=== PATIENT | male | born 1965 | race Caucasian/White ===

== ENCOUNTER 2016-10-08 03:07 | Emergency (ER) | payer OTHER ==
[~2016-10-08] VITALS: Ht 180.3 cm; Wt 113.8 kg
[~2016-10-08 03:07] MED LIST: AMOX500C3 PO; CETI10TA84 PO; MULT-506 PO; OXYC-57 PO; PRT40 PO
[2016-10-08 03:14] VITALS: TEMP 36.5; Ht 180.3 cm; Wt 113.8 kg
[2016-10-08] MEDS ORDERED: NITROGLYCERIN 0.4 MG SL PER TAB CHARGE SL STA (03:26)
[2016-10-08 03:36] LABS: BASO % 0.4 %; BASO ABS # 0.02 K/uL (0-0.2); COMPLETE YES; EOS % 4.4 %; HEMATOCRIT 44.1 % (42-52); IG% 0.4 %; LYMPH % 46.8 %; LYMPH ABS # 2.13 K/uL (1.2-3.4); MEAN CELL VOLUME 88.2 fL (80-100); MEAN CORPUSCULAR HGB CONC 35.1 g/dl (32-36); MEAN PLATELET VOLUME 9.4 fL (7.4-10.4); MONO % 8.8 %; NEUT % 39.2 %; PLATELET COUNT 208 K/uL (130-400); WHITE BLOOD COUNT 4.55 K/uL (4.8-10.8)
[2016-10-08] MEDS: NITROGLYCERIN 0.4 MG SL PER TAB CHARGE SL PRN ×2 (03:37→03:45)
--- NOTE | 2016-10-08 03:50 | EMERGENCY ROOM VISIT NOTE ---
History Report prepared by Hank: Manish Hercules Under the Supervision of: Dr. Jose E Miranda M.D. First contact with patient: 03:20 Chief Complaint: CARDIAC ASSESSMENT Stated Complaint: CHEST PRESSURE History of Present Illness The patient is a 50 year old male who presents to the Emergency Room with complaints of constant left-sided chest discomfort since yesterday. The patient states the the discomfort feels like heart burn and is rated 2/10 in severity. The discomfort does not radiate and is not exertional. His blood pressure is elevated compared to baseline. He is not on medication for blood pressure. The patient denies shortness of breath. The patient had two tablets of full strength aspirin tonight. The patient denies any recent falls or injury. He denies any history of cardiac disease or blood clots. He denies family history of heart attack. The patient just got back from a trip to [place]. 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 Source of History: patient Onset: yesterday Position: chest (left) Symptom Intensity: 2/10 Timing: constant Associated Symptoms: No SOB Review of Systems See HPI for pertinent positives & negatives. A total of 10 systems reviewed and were otherwise negative. Past Medical & Surgical Medical Problems: (1) Febrile illness (2) GERD (gastroesophageal reflux disease) Family History Patient reports no known family medical history. Social History Smoking Status: Never Smoker Alcohol Use: occasionally Drug Use: none Marital Status: Housing Status: lives with family Occupation Status: employed Current/Historical Medications Scheduled Cefadroxil (Cefadroxil), 1 GM PO DAILY Cetirizine (Zyrtec), 10 MG PO UD Multivitamin (Multivitamin), 1 TAB PO DAILY Omeprazole (Prilosec), 20 MG PO DAILY Allergies Coded Allergies: No Known Allergies (Unverified , 10/08/16) Physical Exam Vital Signs Date Time Temp Pulse Resp B/P Pulse Ox O2 Delivery O2 Flow Rate FiO2 10/08/16 06:00 67 16 146/105 97 Room Air 10/08/16 05:57 146/108 10/08/16 05:30 66 22 134/90 96 10/08/16 05:00 66 17 113/78 96 10/08/16 04:31 136/92 10/08/16 04:00 73 23 132/93 96 10/08/16 03:56 74 3/12/17 03:45 143/101 10/08/16 03:17 97 Room Air 10/08/16 03:14 36.5 76 18 195/103 98 Room Air Physical Exam GENERAL: Patient is anxious appearing in mild distress. HEENT: No acute trauma, normocephalic atraumatic, mucous membranes moist, no nasal congestion, no scleral icterus. NECK: No stridor, no adenopathy, no meningismus, trachea is midline. LUNGS: No dyspnea. Clear to auscultation and equal bilaterally. No wheeze, no rhonchi. HEART: Regular rate and rhythm. No murmurs, rubs, gallops appreciated. ABDOMEN: Soft, nontender, bowel sounds positive, no masses appreciated, no peritonitis. BACK: No midline tenderness, no CVA tenderness EXTREMITIES: Normal motion all extremities, no cyanosis, no edema. NEUROLOGIC: Alert and oriented, no acute motor or sensory deficits, no focal weakness, cranial nerves grossly intact. SKIN: No rash, no jaundice, no diaphoresis. Sunburn over anterior chest. Medical Decision & Procedures ER Provider Diagnostic Interpretation: X ray results and stated below per my interpretation. Other radiology results and stated below per my review and radiologist interpretation: Chest: 1 view: No infiltrate, no effusion, normal cardiac border. Questionable mild increased size of mediastinum. CTA CHEST: Compared to 07/31/14. No evidence of PE. No aortic aneurysm or dissection. Atelectatic changes. Mild peribronchial thickening. Moderate hiatal hernia. Query mild esophageal wall thickening. Mild splenomegaly. Radiologist: Moriah Tapia MD. Laboratory Results 10/08/16 03:25 Red Blood Count 5.00, Mean Corpuscular Volume 88.2, Mean Corpuscular Hemoglobin 31.0, Mean Corpuscular Hemoglobin Concent 35.1, Mean Platelet Volume 9.4, Neutrophils (%) (Auto) 39.2, Lymphocytes (%) (Auto) 46.8, Monocytes (%) (Auto) 8.8, Eosinophils (%) (Auto) 4.4, Basophils (%) (Auto) 0.4, Neutrophils # (Auto) 1.78, Lymphocytes # (Auto) 2.13, Monocytes # (Auto) 0.40, Eosinophils # (Auto) 0.20, Basophils # (Auto) 0.02 10/08/16 03:25 Test 10/08/16 03:25 10/08/16 04:02 White Blood Count 4.55 K/uL (4.8-10.8) Red Blood Count 5.00 M/uL (4.7-6.1) Hemoglobin 15.5 g/dL (14.0-18.0) Hematocrit 44.1 % (42-52) Mean Corpuscular Volume 88.2 fL (80-100) Mean Corpuscular Hemoglobin 31.0 pg (25-34) Mean Corpuscular Hemoglobin Concent 35.1 g/dl (32-36) Platelet Count 208 K/uL (130-400) Mean Platelet Volume 9.4 fL (7.4-10.4) Neutrophils (%) (Auto) 39.2 % Lymphocytes (%) (Auto) 46.8 % Monocytes (%) (Auto) 8.8 % Eosinophils (%) (Auto) 4.4 % Basophils (%) (Auto) 0.4 % Neutrophils # (Auto) 1.78 K/uL (1.4-6.5) Lymphocytes # (Auto) 2.13 K/uL (1.2-3.4) Monocytes # (Auto) 0.40 K/uL (0.11-0.59) Eosinophils # (Auto) 0.20 K/uL (0-0.5) Basophils # (Auto) 0.02 K/uL (0-0.2) RDW Standard Deviation 40.7 fL (36.4-46.3) RDW Coefficient of Variation 12.7 % (11.5-14.5) Immature Granulocyte % (Auto) 0.4 % Immature Granulocyte # (Auto) 0.02 K/uL (0.00-0.02) D-Dimer 250 ug/L FEU (0-500) Anion Gap 9.0 mmol/L (3-11) Est Creatinine Clear Calc Drug Dose 104.2 ml/min Estimated GFR () 90.9 Estimated GFR (Non- 78.4 BUN/Creatinine Ratio 15.2 (10-20) Calcium Level 8.5 mg/dl (8.5-10.1) Total Creatine Kinase 161 U/L (39-308) Creatine Kinase MB 1.2 ng/ml (0.5-3.6) Creatine Kinase MB Ratio 0.7 (0-3.0) Troponin I < 0.015 ng/ml (0-0.045) Chemistry Specimen Hemolysis Bedside Troponin I 0.000 ng/ml (0-0.045) Laboratory results as reviewed by me. Medications Administered Medications (Trade) Dose Ordered Sig/Sarahi Route Start Time Stop Time Status Last Admin Dose Admin Nitroglycerin (Nitrostat Tab) 0.4 mg Q5M PRN SL 10/08/16 03:30 11/07/16 03:29 10/08/16 03:45 0.4 MG Nitroglycerin (Nitrostat Tab) 0.4 mg NOW STAT SL 10/08/16 03:26 10/08/16 03:28 DC 10/08/16 03:26 0.4 MG ECG Indication: chest pain Rate (beats per minute): 73 Rhythm: sinus rhythm Findings: 1st degree AV block, no acute ischemic change, no ectopy Change: DC interval increased 1st degree AV block new compared to prior EKG dated 2014. ED Course 0321: The patient was evaluated in room A2. A complete history and physical exam was performed. 0326: Nitroglycerin 0.4 mg SL. 0330: Nitroglycerin 0.4 mg SL. 0420: The patient has no further chest pain and feels well. I discussed the pros and cons of CT scanning and he agrees. 0530: Repeat EKG: Sinus rhythm at 65, no acute ischemia or ectopy, 1st degree AV block, no significant change compared to previous EKG. 0545: The patient feels good and is comfortable going home. Medical Decision Differential: Cardiac Ischemia (STEMI, NSTEMI, Unstable Angina, etc), Aortic Dissection, Arrhythmia, Pulmonary Embolism, Pneumonia, Pneumothorax, MSK, Infectious, Pericarditis/Myocarditis, Esophageal Rupture, Gastrointestinal, amongst other pathologies entertained. 50 yr old male arrives with left sided chest pain and hypertension. Resolved with SLNTG. EKG x 2, trop x 2, and symptoms ongoing for last few days thus I do not feel this is ACS. Mild widening on CXR, that while likely portable and slightly rotated, aortic issue must be ruled out, thus CT done. CT reveals likely esophagitis and hiatal hernia. Last endo 2 years ago. On omeprazole though with recent travel he admits poor diet. Suspect he was having esophageal spasm, thus cause of CP. HTN likely reactionary though he admits it was somewhat elevated at PCP. I do not see clear indications for admission at this time and patient wishes to go home Stressed follow up with PCP. Increased to BID prilosec. RTED immediately if worsening. Does have new 1st AV block which is minor and not ACS related but should be followed up by PCP. Impression Primary Impression: Esophagitis Additional Impressions: Left sided chest pain Hypertension Hiatal hernia 1st degree AV block Scribe Attestation The scribe's documentation has been prepared under my direction and personally reviewed by me in its entirety. I confirm that the note above accurately reflects all work, treatment, procedures, and medical decision making performed by me. Departure Information Dispostion Home / Self-Care Forms IMPORTANT VISIT INFORMATION Patient Instructions Esophagitis, My [facility] Additional Instructions Increase your Prilosec dose to twice daily. It is very important you contact your primary care provider within next few days to schedule follow up. If you have return of chest pain, passing out, difficulty breathing or other concerns, return immediately or call 911. We are always here to help. Problem Qualifiers Additional Impressions: Hypertension Hypertension type: other secondary hypertension Qualified Codes: I15.8 - Other secondary hypertension
[2016-10-08 04:20] LABS: BLOOD UREA NITROGEN 17 mg/dl (7-18); BUN/CREATININE RATIO 15.2 (10-20); CALCIUM 8.5 mg/dl (8.5-10.1); CARBON DIOXIDE 29 mmol/L (21-32); CHLORIDE 105 mmol/L (98-107); CKMB/CK RATIO 0.7 (0-3.0); GLUCOSE 103 mg/dl (70-99); POTASSIUM 3.8 mmol/L (3.5-5.1); SODIUM 143 mmol/L (136-145)
[2016-10-08] MEDS ORDERED: PRLSR20 PO (04:30)
[2016-10-08] MEDS ORDERED: CEFA1TAB PO (04:30)
[2016-10-08] MEDS ORDERED: OPTIRAY 320 IV PRN (04:45)
[2016-10-08 06:00] VITALS: BP 146/105; PULSE 67; O2SAT 97
--- NOTE | 2016-10-08 07:09 | DIAGNOSTIC IMAGING REPORT ---
CT ANGIOGRAM OF THE CHEST CLINICAL HISTORY: Atypical chest pain. COMPARISON STUDY: Chest CT dated 07/31/2014. Chest x-ray dated 10/08/2016. TECHNIQUE: Following the IV administration of 111 cc of Optiray 320, CT angiogram of the chest was performed from the upper abdomen to the thoracic inlet utilizing the pulmonary embolus protocol. Images are reviewed in the axial, sagittal, and coronal planes. 3-D MIPS images are created and assessed. IV contrast was administered without complication. CT DOSE: 661.10 mGy.cm FINDINGS: Thyroid: Imaged portions of the thyroid gland are normal in size and attenuation. Thoracic aorta: The thoracic aorta is normal in caliber and demonstrates standard 3-vessel arch anatomy. No dissection is seen. Pulmonary vasculature: The pulmonary trunk is normal in caliber. There are no filling defects identified in main, lobar, or segmental pulmonary branches to suggest pulmonary embolus. Heart: The heart is top normal in size and without pericardial effusion. There are scattered coronary artery calcifications. Lungs and pleural spaces: A cyst in the right middle lobe measures 3.0 cm. There is no airspace consolidation or pleural effusion. Dependent atelectasis is observed. The trachea and central airways are clear. Mediastinum: There is no mediastinal lymphadenopathy. Gloria: Clear. Axillae: There is no axillary lymphadenopathy. Upper abdomen: There is a moderate to large hiatal hernia. The spleen is mildly enlarged measuring 14 cm in length. Partially visualized upper abdominal viscera is otherwise within normal limits. Skeletal structures: No lytic or blastic bony lesions are seen. IMPRESSION: 1. There is no evidence of pulmonary embolus in the main, lobar, or segmental pulmonary arteries. 2. There is no airspace consolidation or pleural effusion. 3. Moderate to large hiatal hernia. 4. Mild splenomegaly. Electronically signed by: Reinaldo Dorsey M.D. 10/08/2016 7:07 AM Dictated Date/Time: 10/08/2016 7:03 AM
--- NOTE | 2016-10-08 08:02 | DIAGNOSTIC IMAGING REPORT ---
SINGLE VIEW CHEST CLINICAL HISTORY: Atypical chest pain. FINDINGS: An AP, portable, upright chest radiograph is compared to study dated 08/07/2014 and correlated with chest CT dated 07/31/2014. The examination is degraded by portable technique and patient rotation. The cardiomediastinal silhouette is unremarkable. A hiatal hernia is noted. The lungs and pleural spaces are clear. No pneumothorax is seen. The bony thorax is grossly intact. IMPRESSION: No acute cardiopulmonary abnormality. Electronically signed by: Reinaldo Dorsey M.D. 10/08/2016 8:00 AM Dictated Date/Time: 10/08/2016 7:59 AM
== END 2016-10-08 06:04 | disposition home or self-care (01) ==
LOC: C.EDB 03:08 → C.EDA 06:04
DX: K20.9 Esophagitis, unspecified (principal); I15.8 Other secondary hypertension; K21.9 Gastro-esophageal reflux disease without esophagitis; K44.9 Diaphragmatic hernia without obstruction or gangrene; I44.0 Atrioventricular block, first degree